=== PATIENT | male | born 1985 | race Caucasian/White ===

== ENCOUNTER 2017-12-28 23:47 | Emergency (ER) | payer OTHER ==
--- NOTE | 2017-12-29 01:07 | EDM.PDOC ---
ED HPI GENERAL MEDICAL PROBLEM - General Chief Complaint: Back Pain or Injury Stated Complaint: SEVERE BACK PAIN AND INTO LEGS [id number] Time Seen by Provider: 12/29/17 01:01 Source of Information: Reports: Patient, Family, RN, RN Notes Reviewed History Limitations: Reports: No Limitations - History of Present Illness INITIAL COMMENTS - FREE TEXT/NARRATIVE: Pt presents to the ER with c/o severe low back pain. He states the pain began on . He states he went to the chiropractor on 12/25/17. The pain did not improve, in fact it got worse. Patient called the chiropractor. He was told to give it until Friday. Today the pain is intolerable due to the muscle spasms. He admits to numbness and tingling from the feet to the knees bilaterally, and severe pain with muscle spasms in the low back. Duration: Getting Worse Location: Reports: Back Quality: Reports: Sharp, Stabbing Severity: Severe Worsens with: Reports: None Associated Symptoms: Reports: No Other Symptoms Lower Back Pain Score (Numeric/FACES): 10 - Related Data Allergies Allergy/AdvReac Type Severity Reaction Status Date / Time No Known Allergies Allergy Verified 12/28/17 23:59 Home Meds: Home Meds . [No Known Home Meds] 12/28/17 [History] Past Medical History - Past Health History Medical/Surgical History: Denies Medical/Surgical History Social & Family History - Tobacco Use Smoking Status *Q: Current Every Day Smoker Years of Tobacco use: 8 Packs/Tins Daily: 0.5 Second Hand Smoke Exposure: Yes - Recreational Drug Use Recreational Drug Use: No ED ROS GENERAL - Review of Systems Review Of Systems: ROS reveals no pertinent complaints other than HPI. ED EXAM,LOWER BACK PAIN/INJURY - Physical Exam Exam: See Below Exam Limited By: Physical Impairment General Appearance: Alert, WD/WN, Severe Distress Eye Exam: Bilateral Eye: EOMI, Normal Inspection Ears: Normal External Exam, Hearing Grossly Normal Nose: Normal Inspection Throat/Mouth: Normal Inspection, Normal Voice, No Airway Compromise Head: Atraumatic, Normocephalic Neck: Normal Inspection, Supple, Non-Tender, Full Range of Motion Respiratory/Chest: No Respiratory Distress, Lungs Clear, Normal Breath Sounds, No Accessory Muscle Use, Chest Non-Tender Cardiovascular: Normal Peripheral Pulses, Regular Rate, Rhythm, No Edema, No Gallop, No JVD, No Murmur, No Rub GI/Abdominal: Normal Bowel Sounds, Soft, Non-Tender, No Organomegaly, No Distention, No Abnormal Bruit, No Mass (Male) Exam: Deferred Rectal (Males) Exam: Deferred Back Exam: Normal Inspection, Decreased Range of Motion, Muscle Spasm, Paraspinal Tenderness Extremities: Normal Inspection, Normal Capillary Refill, Limited Range of Motion (legs bilaterally). No: No Pedal Edema, Joint Swelling Neurological: Alert, Normal Mood/Affect, Oriented x 3. No: Normal Gait Psychiatric: Anxious Skin Exam: Warm, Dry, Intact, Normal Color, No Rash Lymphatic: No Adenopathy Course - Vital Signs Last Recorded V/S: Last Vital Signs Temp 98.8 F 12/29/17 02:29 Pulse 65 12/29/17 02:29 Resp 18 12/29/17 02:29 BP 135/69 12/29/17 02:29 Pulse Ox 98 12/29/17 02:29 - Orders/Labs/Meds Orders: Active Orders 24 hr Category Date Time Status Lumbar Spine 2 or 3V [CR] Urgent Exams 12/29/17 01:07 Taken Sacrum Coccyx Min 2V [CR] Urgent Exams 12/29/17 01:07 Taken Meds: Medications Discontinued Medications Generic Name Dose Route Start Last Admin Trade Name Falguni PRN Reason Stop Dose Admin Ketorolac Tromethamine 60 mg 12/29/17 02:15 12/29/17 02:20 Toradol IM 12/29/17 02:16 60 mg ONETIME ONE Administration Methylprednisolone Sodium Succinate 125 mg 12/29/17 01:08 12/29/17 01:20 Solu-Medrol IM 12/29/17 01:09 125 mg ONETIME ONE Administration Orphenadrine Citrate 60 mg 12/29/17 01:15 12/29/17 01:23 Norflex IM 60 mg Q12H GUERITA Administration - Re-Assessments/Exams Free Text/Narrative Re-Assessment/Exam: 12/29/17 04:24 Discussed with the patient to follow up with his primary care facility for a possible MRI, and referral to physical therapy. Departure - Departure Time of Disposition: 02:14 Disposition: Home, Self-Care 01 Condition: Fair Clinical Impression: Lumbar radiculopathy, acute - Discharge Information Instructions: Back Injury Prevention, [id number], Sciatica, [id number], Muscle Strain, [id number], Back Pain, Adult, [id number] Referrals: PCP,None [Primary Care Provider] - Forms: ED Department Discharge Additional Instructions: RX: Diclofenac, Medrol Dose pack, Flexeril Follow up with your primary care facility - My Orders Last 24 Hours: My Active Orders 12/29/17 01:07 Lumbar Spine 2 or 3V [CR] Urgent Sacrum Coccyx Min 2V [CR] Urgent - Assessment/Plan Last 24 Hours: My Active Orders 12/29/17 01:07 Lumbar Spine 2 or 3V [CR] Urgent Sacrum Coccyx Min 2V [CR] Urgent
[2017-12-29] MEDS ORDERED: methylPREDNISolone Sodium Succinate 125 MG/2 ML SDV IM ONE (01:08)
[2017-12-29] MEDS ORDERED: Ketorolac 30 MG/ML SDV IM ONE (02:15)
== END 2017-12-29 02:42 | disposition home or self-care (01) ==
LOC: DL.ED 23:47
DX: M54.16 Radiculopathy, lumbar region (principal); F17.210 Nicotine dependence, cigarettes, uncomplicated
CPT/HCPCS: 72100; 72220; 96372; 99283; J1885; J2360; J2930

== ENCOUNTER 2019-03-14 02:31 | Emergency (ER) | payer MEDICAID, OTHER, SELFPAY ==
[2019-03-14] MEDS ORDERED: Lidocaine 1% 30 ML SDV INJECT ONE (02:36)
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
[2019-03-14] MEDS ORDERED: Lidocaine 1% with EPINEPHrine 1:100,000 20 ML MDV INJECT ONE (02:57)
[2019-03-14 03:32] LABS: ANION GAP 15.4; CHLORIDE,CL 105 mmol/L (101-111); SODIUM,NA 138 mmol/L (135-145)
== END 2019-03-14 04:12 | disposition left against medical advice (07) ==
LOC: DL.ED 02:31
DX: S01.81XA Laceration without foreign body of other part of head, initial encounter (principal); S01.412A Laceration without foreign body of left cheek and temporomandibular area, initial encounter; F10.129 Alcohol abuse with intoxication, unspecified; W01.10XA Fall on same level from slipping, tripping and stumbling with subsequent striking against unspecified object, initial encounter; Y90.8 Blood alcohol level of 240 mg/100 ml or more
CPT/HCPCS: 12001; 12002; 12015; 36415; 70450; 70486; 80053; 85025; 99284-25; G0480